=== PATIENT | female | born 1990 | race Hispanic/Latino ===

== ENCOUNTER 2019-03-29 20:07 | Inpatient (IN) | payer BC ==
[2019-03-29] MEDS ORDERED: Sodium Chloride 0.9% 1,000 ML IV STA (20:47)
[2019-03-29] MEDS ORDERED: Iohexol 240 (50 ml) PO ONE (20:50)
--- NOTE | 2019-03-29 21:03 | ED PDOC ---
HPI: Abdomen Time Seen by Provider: 03/29/19 20:10 Chief Complaint (Nursing): Abdominal Pain Chief Complaint (Provider): Abdominal Pain, Diarrhea, Fever History Per: Patient History/Exam Limitations: no limitations Onset/Duration Of Symptoms: Hrs (x8) Outside of [place] travel?: No Current Symptoms Are (Timing): Still Present Additional Complaint(s): 29 year old female presents to the ED with [id number] for evaluation of abdominal pain, fever, mild headache, and bloody diarrhea for the past eight hours. Patient last took Motrin around 1800. Otherwise, denies recent travel, recent antibiotic use, new food exposure, rashes, and vomiting. Past Medical History Reviewed: Historical Data, Nursing Documentation, Vital Signs Vital Signs: Last Vital Signs Temp 99.1 F 03/29/19 20:08 Pulse 107 H 03/29/19 20:08 Resp 18 03/29/19 20:08 BP 115/72 03/29/19 20:08 Pulse Ox 100 03/29/19 20:08 Primary Care Provider: FAMILY PROVIDER,NO (in [facility]) - Medical History PMH: No Chronic Diseases - Surgical History Other surgeries: IVF egg retrieval - Family History Family History: States: Unknown Family Hx - Social History Current smoker - smoking cessation education provided: No Alcohol: Occasional Drugs: Denies - Home Medications Home Medications: Ambulatory Orders Medication Instructions Recorded Metronidazole [Flagyl] 500 mg PO BID 5 Days #10 tablet 03/31/19 - Allergies Allergies/Adverse Reactions: Allergies Allergy/AdvReac Type Severity Reaction Status Date / Time No Known Allergies Allergy Verified 03/29/19 20:08 Review of Systems ROS Statement: Except As Marked, All Systems Reviewed And Found Negative Constitutional: Positive for: Fever Gastrointestinal: Positive for: Abdominal Pain, Diarrhea (bloody). Negative for: Vomiting Skin: Negative for: Rash Neurological: Positive for: Headache (mild) Physical Exam - Reviewed Nursing Documentation Reviewed: Yes Vital Signs Reviewed: Yes - Physical Exam Appears: Positive for: Uncomfortable (and febrile appearing with visible chills) Head Exam: Positive for: ATRAUMATIC, NORMAL INSPECTION, NORMOCEPHALIC Skin: Positive for: Normal Color, Warm, DRY Eye Exam: Positive for: EOMI, Normal appearance, PERRL ENT: Positive for: Normal ENT Inspection Neck: Positive for: Normal, Painless ROM, Supple Cardiovascular/Chest: Positive for: Regular Rate, Rhythm Respiratory: Positive for: Normal Breath Sounds. Negative for: Respiratory Distress Gastrointestinal/Abdominal: Positive for: Bowel Sounds, Soft, Tenderness (minimal diffuse tenderness). Negative for: Distended, Guarding, Rebound Back: Positive for: Normal Inspection Extremity: Positive for: Normal ROM (all extremities) Neurological/Psych: Positive for: Awake, Alert, Oriented (x3), Gait (stable), cargo service supervisor II-XII. Negative for: Motor/Sensory Deficits, Facial Droop - Laboratory Results Result Diagrams: 03/31/19 05:29 03/31/19 05:29 - ECG O2 Sat by Pulse Oximetry: 100 (RA) Pulse Ox Interpretation: Normal Medical Decision Making Medical Decision Making: Time: 2046 Impression: abdominal pain and diarrhea, r/o colitis, possible viral illness Plan: --VBG --Abd/pelvis CT PO and IV contrast --CMP --CBC with differential --Normal saline IV --Pepcid 20mg IVP --Toradol 15mg IVP --Zofran 4mg IV --Blood culture --Reevaluation 2240 Labs reviewed significant for elevated WBCs. Pending CT. 2350 Spoke to family members and answered quetions about the lab results, waiting for CT to be done 0000 Patient care endorsed to Dr. Arciniega pending CT scan Scribe Attestation: Documented by Missy Malik, acting as a scribe for Mikki Otero MD. Provider Scribe Attestation: All medical record entries made by the Scribe were at my direction and personally dictated by me. I have reviewed the chart and agree that the record accurately reflects my personal performance of the history, physical exam, me dical decision making, and the department course for this patient. I have also personally directed, reviewed, and agree with the discharge instructions and disposition. Disposition - Clinical Impression Clinical Impression: Fever, Colitis presumed infectious - Patient ED Disposition Is Patient to be Admitted: Transfer of Care - Disposition Disposition: Transfer of Care Disposition Time: 00:00 Condition: GUARDED Patient Signed Over To: Mary Arciniega (pending CT scan )
[2019-03-29] MEDS ORDERED: Iohexol 240 (50 ml) ONE (21:20)
[2019-03-29 21:51] LABS: BASO # 0.1 K/uL (0.0-0.2); BASO % 0.2 % (0.0-2.0); EOS % 0.1 % (0.0-4.0); HEMOGLOBIN 12.8 g/dL (12.0-16.0); LYMPH # 0.4 K/uL (1.0-4.3); LYMPH % 1.7 % (20.0-40.0); MEAN CELL VOLUME 94.7 fl (81.0-99.0); MEAN CORPUSCULAR HEMOGLOBIN 32.2 pg (27.0-31.0); MEAN CORPUSCULAR HGB CONC 34.1 g/dL (33.0-37.0); MEAN PLATELET VOLUME 10.8 fl (7.2-11.7); PLATELET COUNT 259 K/uL (130-400); RBC 3.96 Mil/uL (3.80-5.20); RED CELL DISTRIBUTION WIDTH 12.4 % (11.5-14.5); WHITE BLOOD COUNT 25.6 K/uL (4.8-10.8)
[2019-03-29 21:54] LABS: VENOUS BLOOD GAS BASE EXCESS 2.7 mmol/L (0.0-2.0); VENOUS BLOOD GAS PCO2 36 mmHg (40-60); VENOUS BLOOD GAS PO2 16 mm/Hg (30-55); VENOUS BLOOD PH 7.47 (7.32-7.43)
[2019-03-29 22:03] LABS: ALB/GLOB RATIO 1.3 (1.0-2.1); ALBUMIN 4.4 g/dL (3.5-5.0); ALT/SGPT 26 U/L (9-52); AST/SGOT 32 U/L (14-36); BLOOD UREA NITROGEN 11 mg/dl (7-17); CALCIUM 9.1 mg/dL (8.4-10.2); GFR NON-AFRICAN AMERICAN > 60
[2019-03-29] MEDS ORDERED: Sodium Chloride 0.9% 50 ML IV ONE (22:45)
[2019-03-29] MEDS ORDERED: Iohexol 300 100 ML IJ ONE (22:45)
[2019-03-29 23:21] LABS: LYMPHOCYTE 3 % (20-50); MONOCYTE 5 % (0-10); NEUTROPHIL 92 % (42-75); PLATELET ESTIMATE NORMAL (NORMAL); TOTAL CELLS COUNTED 100
[2019-03-29 23:22] LABS: ANISOCYTOSIS SLIGHT; HYPOCHROMIC SLIGHT; POIKILOCYTOSIS SLIGHT; POLYCHROMIC SLIGHT
[2019-03-29 23:23] LABS: HYPERSEGMENTATION PRESENT
--- NOTE | 2019-03-30 00:16 | ED PDOC ---
- Laboratory Results Result Diagrams: 03/31/19 05:29 03/31/19 05:29 Lab Results: pO2 16 mm/Hg (30-55) L 03/29/19 21:51 VBG pH 7.47 (7.32-7.43) H 03/29/19 21:51 VBG pCO2 36 mmHg (40-60) L 03/29/19 21:51 VBG HCO3 25.1 mmol/L 03/29/19 21:51 VBG Total CO2 27.3 mmol/L (22-28) 03/29/19 21:51 VBG O2 Sat (Calc) 28.8 % (40-65) L 03/29/19 21:51 VBG Base Excess 2.7 mmol/L (0.0-2.0) H 03/29/19 21:51 VBG Potassium 3.5 mmol/L (3.6-5.2) L 03/29/19 21:51 Sodium 133.0 mmol/L (132-148) 03/29/19 21:51 Chloride 100.0 mmol/L (98-107) 03/29/19 21:51 Glucose 108 mg/dL (65-105) H 03/29/19 21:51 Lactate 1.4 mmol/L (0.7-2.1) 03/29/19 21:51 FiO2 21.0 % 03/29/19 21:51 Total Bilirubin 1.0 mg/dl (0.2-1.3) 03/29/19 21:30 AST 32 U/L (14-36) 03/29/19 21:30 ALT 26 U/L (9-52) 03/29/19 21:30 Alkaline Phosphatase 44 U/L (38-126) 03/29/19 21:30 Total Protein 7.9 G/DL (6.3-8.2) 03/29/19 21:30 Albumin 4.4 g/dL (3.5-5.0) 03/29/19 21:30 Globulin 3.5 gm/dL (2.2-3.9) 03/29/19 21:30 Albumin/Globulin Ratio 1.3 (1.0-2.1) 03/29/19 21:30 - ECG O2 Sat by Pulse Oximetry: 100 (RA) Pulse Ox Interpretation: Normal Medical Decision Making Medical Decision Makin Patient care endorsed from Dr. Otero pending CT scan 0117 EXAM: CT Abdomen and Pelvis with IV contrast CLINICAL HISTORY: PAIN TECHNIQUE: Axial computed tomography images of the abdomen and pelvis with oral and intravenous contrast. 603.58 mGy-cm CONTRAST: With; [id number] COMPARISON: None provided. FINDINGS: LUNG BASES: The lung bases appear clear. No pleural effusions are seen. LIVER: Unremarkable. GALLBLADDER AND BILE DUCTS: The gallbladder appears within normal limits. No radioopaque gallstones are seen. No biliary ductal dilatation is evident. PANCREAS: Unremarkable. SPLEEN: Unremarkable. ADRENAL GLANDS: Unremarkable. KIDNEYS, URETERS, AND BLADDER: The kidneys appear within normal limits. There is no hydronephrosis or hydroureter. No urinary calculi are seen. STOMACH AND BOWEL: Thick walled fluid filled colon is noted with involvement of all segments compatible with diffuse pancolitis, please exclude pseudomembranous colitis. APPENDIX: No evidence of acute appendicitis on CT examination. PERITONEUM: No free fluid. No free air. LYMPH NODES: No lymphadenopathy is evident. REPRODUCTIVE: Unremarkable as visualized. VASCULATURE: No evidence of abdominal aortic aneurysm. BONES: No aggressive appearing osseous lesion. No acute osseous pathology evident. IMPRESSION: Severe pancolitis, please exclude pseudomembranous colitis clinically. Electronically signed on March 30, 2019 1:17:21 AM EDT by: Yakov Mullins M.D., M.B.A., Certified By ABR [id number] Patient will be admitted to telemetry. GI consult for morning Patient started on vancomycin and confirmed with family patient received dosage of doxycycline Additional fluids and Toradol will be ordered Scribe Attestation: Documented by Quinton Hess, acting as a scribe for Mary Arciniega MD Provider Scribe Attestation: All medical record entries made by the Scribe were at my direction and personally dictated by me. I have reviewed the chart and agree that the record accurately reflects my personal performance of the history, physical exam, medical decision making, and the department course for this patient. I have also personally directed, reviewed, and agree with the discharge instructions and disposition. Disposition - Clinical Impression Clinical Impression: Fever, Colitis presumed infectious - POA Present On Arrival: None - Disposition Disposition: Admitted as In-Patient Disposition Time: 01:47 Condition: GUARDED
[2019-03-30] MEDS ORDERED: Vancomycin 500 mg (Oral/Rectal USE) PO STA (01:36)
[2019-03-30] MEDS ORDERED: Sodium Chloride 0.9% 1,000 ML IV STA (01:49)
--- NOTE | 2019-03-30 07:56 | CT ---
Date of service: 03/30/2019 PROCEDURE: CT Abdomen and Pelvis with contrast HISTORY: abd pain diarrhea COMPARISON: None. TECHNIQUE: Contrast dose: 95 mL of Omnipaque. Axial and reformatted coronal and sagittal CT of the abdomen and pelvis were obtained after IV and oral contrast administration. Radiation dose: Total exam DLP = 603.58 mGy-cm. This CT exam was performed using one or more of the following dose reduction techniques: Automated exposure control, adjustment of the mA and/or kV according to patient size, and/or use of iterative reconstruction technique. FINDINGS: LOWER THORAX: No evidence of acute pathology LIVER: Unremarkable. No gross lesion or ductal dilatation. GALLBLADDER AND BILE DUCTS: Unremarkable. PANCREAS: Unremarkable. No gross lesion or ductal dilatation. SPLEEN: Unremarkable. ADRENALS: Unremarkable. No mass. KIDNEYS AND URETERS: Unremarkable. No hydronephrosis. No solid mass. VASCULATURE: Unremarkable. No aortic aneurysm. No aortic atherosclerotic calcification or mural plaque present. BOWEL: There is a diffuse wall thickening of the large bowel more prominent at the transverse and left colon suggestive of pancolitis. The differential consideration includes pseudomembranous colitis. No evidence of high-grade bowel obstruction. Mildly dilated small bowel loops in the mid abdomen demonstrate mild wall thickening. APPENDIX: No evidence of appendicitis. PERITONEUM: Unremarkable. No free fluid. No free air. LYMPH NODES: Unremarkable. No enlarged lymph nodes. BLADDER: Unremarkable. REPRODUCTIVE: 2.1 centimeters cyst at the right adnexa noted. Otherwise the uterus and left adnexa are unremarkable. BONES: No acute fracture. OTHER FINDINGS: None. IMPRESSION: Findings suggestive of pancolitis more prominent at the transverse and left colon. Mildly dilated small bowel loops demonstrate mild wall thickening. No other acute pathology noted in the abdomen and pelvis. Preliminary report was submitted by [facility] Radiology contains concordant findings.
--- NOTE | 2019-03-30 08:07 | CP.PCM.HP ---
<Lauren Paul - Last Filed: 03/30/19 09:00> History of Present Illness - History of Present Illness History of Present Illness: 29 year old female presents to the ED for evaluation of diffuse abdominal pain onset today associated with fever, mild headache, and bloody diarrhea. She reports 3-4 episodes of diarrhea. Patient also endorses recent Doxycycline use. Otherwise she denies recent travel, new food exposure, no sick contacts, rashes, and vomiting. No urinary sx. PMD: none provided PMH: denies PSH: IVF egg retrieval FMH: denies Meds: denies at this time NKDA SH: denies etoh, tobacco or ilicit drugs use Present on Admission - Present on Admission Any Indicators Present on Admission: No Review of Systems - Review of Systems All systems: reviewed and no additional remarkable complaints except (HPI) Past Patient History - Past Medical History & Family History Past Medical History?: Yes - Past Social History Smoking Status: Never Smoked - CARDIAC Hx Cardiac Disorders: No - PULMONARY Hx Respiratory Disorders: No - NEUROLOGICAL Hx Neurological Disorder: No - HEENT Hx HEENT Problems: No - RENAL Hx Chronic Kidney Disease: No - ENDOCRINE/METABOLIC Hx Endocrine Disorders: No - HEMATOLOGICAL/ONCOLOGICAL Hx Blood Disorders: No - INTEGUMENTARY Hx Dermatological Problems: No - MUSCULOSKELETAL/RHEUMATOLOGICAL Hx Musculoskeletal Disorders: No Hx Falls: No - PSYCHIATRIC Hx Substance Use: No - SURGICAL HISTORY Other/Comment: IVF retrival , BREAST AUGMENTATION - ANESTHESIA Hx Anesthesia: Yes Hx Anesthesia Reactions: No Hx Malignant Hyperthermia: No Meds Allergies/Adverse Reactions: Allergies Allergy/AdvReac Type Severity Reaction Status Date / Time No Known Allergies Allergy Verified 03/29/19 20:08 Physical Exam - Constitutional Appears: Non-toxic, No Acute Distress - Head Exam Head Exam: NORMAL INSPECTION - Eye Exam Eye Exam: EOMI, PERRL - ENT Exam ENT Exam: Mucous Membranes Moist - Neck Exam Neck exam: Positive for: Full Rom. Negative for: Tenderness, Thyromegaly - Respiratory Exam Respiratory Exam: Clear to Auscultation Bilateral, NORMAL BREATHING PATTERN. absent: Chest Wall Tenderness, Rales, Wheezes - Cardiovascular Exam Cardiovascular Exam: REGULAR RHYTHM, +S1, +S2. absent: Tachycardia - GI/Abdominal Exam GI & Abdominal Exam: Normal Bowel Sounds, Soft, Tenderness (diffuse). absent: Distended, Guarding, Rebound - Extremities Exam Extremities exam: Negative for: calf tenderness, pedal edema - Neurological Exam Neurological exam: Alert, CN II-XII Intact, Oriented x3 - Psychiatric Exam Psychiatric exam: Normal Mood - Skin Skin Exam: Dry, Warm Results - Vital Signs Recent Vital Signs: Last Vital Signs Temp 98.2 F 03/30/19 06:06 Pulse 89 03/30/19 06:06 Resp 18 03/30/19 06:06 BP 101/52 L 03/30/19 06:06 Pulse Ox 100 03/30/19 06:06 - Labs Result Diagrams: 03/29/19 21:30 03/29/19 21:30 Labs: Laboratory Results - last 24 hr 03/29/19 03/29/19 03/29/19 21:30 21:30 21:51 WBC 25.6 H RBC 3.96 Hgb 12.8 Hct 37.5 MCV 94.7 MCH 32.2 H MCHC 34.1 RDW 12.4 Plt Count 259 MPV 10.8 Neut % (Auto) 94.0 H Lymph % (Auto) 1.7 L Meade % (Auto) 4.0 Eos % (Auto) 0.1 Baso % (Auto) 0.2 Neut # (Auto) 24.0 H Lymph # (Auto) 0.4 L Meade # (Auto) 1.0 H Eos # (Auto) 0.0 Baso # (Auto) 0.1 Neutrophils % (Manual) 92 H Lymphocytes % (Manual) 3 L Monocytes % (Manual) 5 Hypersegmented Polys Present Platelet Estimate Normal Polychromasia Slight Hypochromasia (manual) Slight Poikilocytosis (manual Slight Anisocytosis (manual) Slight pO2 16 L VBG pH 7.47 H VBG pCO2 36 L VBG HCO3 25.1 VBG Total CO2 27.3 VBG O2 Sat (Calc) 28.8 L VBG Base Excess 2.7 H VBG Potassium 3.5 L Glucose 108 H Lactate 1.4 FiO2 21.0 Sodium 133 133.0 Potassium 3.7 Chloride 98 100.0 Carbon Dioxide 23 Anion Gap 16 BUN 11 Creatinine 0.8 Est GFR ( Amer) > 60 Est GFR (Non-Af Amer) > 60 Random Glucose 105 Calcium 9.1 Total Bilirubin 1.0 AST 32 ALT 26 Alkaline Phosphatase 44 Total Protein 7.9 Albumin 4.4 Globulin 3.5 Albumin/Globulin Ratio 1.3 Venous Blood Potassium 3.5 L Assessment & Plan - Assessment and Plan (Free Text) Assessment: 29 yo female patient with not relevant PMH admitted with Pancolitis. Plan: - abd CT: Severe pancolitis (preliminar report) f/u official report - leukocytosis, lactate 1.2, afebrile - GI consulted, recs appreciated - NPO - IV fluids - pain management - flagyl IV - f/u blood and stool cx, c diff - labs in am - rest of plan as ordered Case seen and examined with Dr Cross. <Brett Cross - Last Filed: 03/30/19 09:12> Results - Vital Signs Recent Vital Signs: Last Vital Signs Temp 98.2 F 03/30/19 08:00 Pulse 80 03/30/19 08:22 Resp 19 03/30/19 08:00 BP 105/59 L 03/30/19 08:00 Pulse Ox 99 03/30/19 08:00 - Labs Result Diagrams: 03/29/19 21:30 03/29/19 21:30 Labs: Laboratory Results - last 24 hr 03/29/19 03/29/19 03/29/19 21:30 21:30 21:51 WBC 25.6 H RBC 3.96 Hgb 12.8 Hct 37.5 MCV 94.7 MCH 32.2 H MCHC 34.1 RDW 12.4 Plt Count 259 MPV 10.8 Neut % (Auto) 94.0 H Lymph % (Auto) 1.7 L Meade % (Auto) 4.0 Eos % (Auto) 0.1 Baso % (Auto) 0.2 Neut # (Auto) 24.0 H Lymph # (Auto) 0.4 L Meade # (Auto) 1.0 H Eos # (Auto) 0.0 Baso # (Auto) 0.1 Neutrophils % (Manual) 92 H Lymphocytes % (Manual) 3 L Monocytes % (Manual) 5 Hypersegmented Polys Present Platelet Estimate Normal Polychromasia Slight Hypochromasia (manual) Slight Poikilocytosis (manual Slight Anisocytosis (manual) Slight pO2 16 L VBG pH 7.47 H VBG pCO2 36 L VBG HCO3 25.1 VBG Total CO2 27.3 VBG O2 Sat (Calc) 28.8 L VBG Base Excess 2.7 H VBG Potassium 3.5 L Glucose 108 H Lactate 1.4 FiO2 21.0 Sodium 133 133.0 Potassium 3.7 Chloride 98 100.0 Carbon Dioxide 23 Anion Gap 16 BUN 11 Creatinine 0.8 Est GFR ( Amer) > 60 Est GFR (Non-Af Amer) > 60 Random Glucose 105 Calcium 9.1 Total Bilirubin 1.0 AST 32 ALT 26 Alkaline Phosphatase 44 Total Protein 7.9 Albumin 4.4 Globulin 3.5 Albumin/Globulin Ratio 1.3 Venous Blood Potassium 3.5 L C. difficile Ag & Toxin 03/30/19 05:00 WBC RBC Hgb Hct MCV MCH MCHC RDW Plt Count MPV Neut % (Auto) Lymph % (Auto) Meade % (Auto) Eos % (Auto) Baso % (Auto) Neut # (Auto) Lymph # (Auto) Meade # (Auto) Eos # (Auto) Baso # (Auto) Neutrophils % (Manual) Lymphocytes % (Manual) Monocytes % (Manual) Hypersegmented Polys Platelet Estimate Polychromasia Hypochromasia (manual) Poikilocytosis (manual Anisocytosis (manual) pO2 VBG pH VBG pCO2 VBG HCO3 VBG Total CO2 VBG O2 Sat (Calc) VBG Base Excess VBG Potassium Glucose Lactate FiO2 Sodium Potassium Chloride Carbon Dioxide Anion Gap BUN Creatinine Est GFR ( Amer) Est GFR (Non-Af Amer) Random Glucose Calcium Total Bilirubin AST ALT Alkaline Phosphatase Total Protein Albumin Globulin Albumin/Globulin Ratio Venous Blood Potassium C. difficile Ag & Toxin Negative Assessment & Plan - Assessment and Plan (Free Text) Assessment: Patient was personally seen and examined by me in rounds with residents. Available labs and diagnostic data reviewed. Case, Patient's condition and management plan discussed with residents in rounds. Agree with resident's progress note. Plan: As ordered.
[2019-03-30] MEDS ORDERED: Sodium Chloride 0.9% 1,000 ML IV SCH (08:15)
[2019-03-30] MEDS: metroNIDAZOLE 500mg/100ml NS 100 ML IVPB SCH ×2 (09:19→16:21)
[2019-03-30] MEDS: Sodium Chloride 0.9% 1,000 ML IV SCH (16:51)
[2019-03-31] MEDS: metroNIDAZOLE 500mg/100ml NS 100 ML IVPB SCH ×2 (00:13→09:42)
[2019-03-31] MEDS: Sodium Chloride 0.9% 1,000 ML IV SCH (02:30)
[2019-03-31 06:35] VITALS: O2SAT 100
[2019-03-31 07:31] LABS: BASO % 0.3 % (0.0-2.0); EOS # 0.2 K/uL (0.0-0.7); EOS % 1.7 % (0.0-4.0); HEMOGLOBIN 10.6 g/dL (12.0-16.0); LYMPH % 10.2 % (20.0-40.0); MEAN CELL VOLUME 94.2 fl (81.0-99.0); MEAN CORPUSCULAR HEMOGLOBIN 32.9 pg (27.0-31.0); MEAN CORPUSCULAR HGB CONC 34.9 g/dL (33.0-37.0); MEAN PLATELET VOLUME 11.1 fl (7.2-11.7); MONO # 0.8 K/uL (0.0-0.8); MONO % 8.5 % (0.0-10.0); NEUT # 7.6 K/uL (1.8-7.0); NEUT % 79.3 % (50.0-75.0); NRBC % 0.1 % (0.0-0.0); RBC 3.24 Mil/uL (3.80-5.20); RED CELL DISTRIBUTION WIDTH 12.7 % (11.5-14.5); WHITE BLOOD COUNT 9.6 K/uL (4.8-10.8)
[2019-03-31 08:07] LABS: ALB/GLOB RATIO 1.1 (1.0-2.1); ALT/SGPT 29 U/L (9-52); AST/SGOT 26 U/L (14-36); BLOOD UREA NITROGEN 7 mg/dl (7-17); CALCIUM 7.9 mg/dL (8.4-10.2); GFR NON-AFRICAN AMERICAN > 60
[2019-03-31 08:08] VITALS: RESP 18
[2019-03-31 11:17] LABS: AMYLASE 34 U/L (30-110); LIPASE 33 U/L (23-300)
--- NOTE | 2019-03-31 12:05 | PN ---
DATE: 03/31/2019 SUBJECTIVE: The patient seen and examined. Interim events noted. Consult noted and appreciated. Gastroenterology followup and intervention noted and appreciated. The patient remains in progressive care unit with telemetry monitoring. Feels much better. Abdominal pain improved. No chest pain. No shortness of breath. Tolerated liquid without any problems. PHYSICAL EXAMINATION: GENERAL: The patient is in no acute distress. VITAL SIGNS: Stable. HEART: S1 and S2, normal and regular. LUNGS: Good bilateral air exchange. ABDOMEN: Soft and nontender. No organomegaly. No fluid. Bowel sounds are present and normal. No sign of acute abdomen. No guarding. No rigidity. No rebound. Abdominal exam is much improved since yesterday's exam. DIAGNOSTIC DATA: Available diagnostic data reviewed. Still ____ is negative. ASSESSMENT AND PLAN: Overall, the patient is clinically stable and improving. Tolerating liquid diet. We will advance the diet to regular and observe the patient. Plan as ordered. Treatment plan discussed with the patient. Brett Cross MD
[2019-03-31 12:06] VITALS: BP 105/66; PULSE 64; TEMP 98.4
--- NOTE | 2019-03-31 13:03 | CP.PCM.PN ---
Subjective - Date & Time of Evaluation Date of Evaluation: 03/31/19 Time of Evaluation: 13:02 - Subjective Subjective: doing better with less diarrhea and no abd pain tolerated regular diet PE: vss afebrile abd - soft with +BS NT/ND imp/plan : colitis improved clinically C.diff negative Flagyl 500mg po BID for 5 days d/c home Objective - Vital Signs/Intake and Output Vital Signs (last 24 hours): Temp Pulse Resp BP Pulse Ox 98.4 F 64 18 105/66 100 03/31/19 12:05 03/31/19 12:05 03/31/19 12:05 03/31/19 12:05 03/31/19 12:05 - Medications Medications: Current Medications Metronidazole (Flagyl 500mg/100ml Ns) 100 mls @ 100 mls/hr IVPB Q8 JENNIFER; Protocol Last Admin: 03/31/19 09:42 Dose: 100 mls/hr Sodium Chloride (Sodium Chloride 0.9%) 1,000 mls @ 100 mls/hr IV .Q10H [facility] Stop: 03/31/19 16:20 Last Admin: 03/31/19 02:30 Dose: 100 mls/hr Ketorolac Tromethamine (Toradol) 15 mg IVP Q6 PRN PRN Reason: abdominal cramps Last Admin: 03/30/19 22:20 Dose: 15 mg Morphine Sulfate (Morphine) 2 mg IVP Q4 PRN PRN Reason: Pain, severe (8-10) Ondansetron HCl (Zofran Inj) 4 mg IVP Q6 PRN PRN Reason: Nausea/Vomiting Last Admin: 03/30/19 22:21 Dose: 4 mg Pantoprazole Sodium (Protonix Inj) 40 mg IVP DAILY [facility] Last Admin: 03/31/19 09:42 Dose: 40 mg - Labs Labs: 03/31/19 05:29 03/31/19 05:29
--- NOTE | 2019-04-03 15:16 | PQF ---
PROVIDER RESPONSE TEXT: Pancolitis REVIEWER QUERY TEXT: Conflicting Documentation Clarification ER has documented: Colitis, presumed infectious, GI sap pp consultant has documented :Colitis, the Attendin g physician has documented Severe Pancolitis:; all 3 (three) conditions have a different ICD10 code: please clarify which diagnoses should be coded and if any of the conditions are ruled out. -- Confirmed and current -- Confirmed, treated and resolved -- Ruled out -- Other, please specify WBC: 25.6->9.6 with a left shift c-diff Ag and toxin: negative --IVF's, ER note: 0147: started on vancomycin and confirmed with family patient received dosage of do xycycline Flagyl IV The patient's Clinical Indicators include: -- Query created by: Melany Edmond on 04/02/2019 3:02 PM Electronically signed by: Brett Cross 04/03/2019 3:13 PM
== END 2019-03-31 14:45 | disposition home or self-care (01) | DRG 387 ==
LOC: H.ER 20:07 → H.ERHOLD 03-30 01:47 → H.ICU/CCU 03-30 03:13 → H.TEL 03-30 19:00
PROVIDERS: ADMIT Internal Medicine; ATTEND Internal Medicine
DX: K51.011 Ulcerative (chronic) pancolitis with rectal bleeding (principal)